=== PATIENT | male | born 1965 | race Caucasian/White ===

== ENCOUNTER 2017-07-03 18:08 | Emergency (ER) | payer OTHER ==
[~2017-07-03] VITALS: Ht 167.6 cm; Wt 97.1 kg
[2017-07-03 18:51] LABS: ABSOLUTE BASOPHIL COUNT 0.1 /CUMM (0.0-0.2); ABSOLUTE EOSINOPHIL COUNT 0.2 /CUMM (0.0-0.7); ABSOLUTE GRANULOCYTE CT 4.9 /CUMM (1.4-6.5); ABSOLUTE LYMPH COUNT 2.8 /CUMM (1.2-3.4); ABSOLUTE MONOCYTE COUNT 0.7 /CUMM (0.10-0.60); BASOPHIL % 0.8 % (0.0-2.0); EOSINOPHIL % 2.3 % (0-5); GRANULOCYTE % 56.6 % (42.2-75.2); HEMATOCRIT 46.1 % (42-52); MEAN CORPUSCULAR HGB 27.9 PG (27.0-31.0); MEAN CORPUSCULAR VOLUME 84.6 FL (80.0-94.0); MEAN PLATELET VOLUME 8.6 FL (7.4-10.4); PLATELET COUNT 224 /CUMM (130-400); RBC DISTRIBUTION WIDTH 13.2 % (11.5-14.5); RED BLOOD CELL CT 5.45 /CUMM (4.70-6.10); WHITE BLOOD CELL COUNT 8.6 /CUMM (4.8-10.8)
--- NOTE | 2017-07-03 20:17 | ED CARDIAC/CP/PALPITATIONS ---
History of Present Illness General Chief Complaint: Chest Pain Stated Complaint: CP Source: patient, family Exam Limitations: no limitations Vital Signs & Intake/Output Vital Signs & Intake/Output Vital Signs Date Time Temp Pulse Resp B/P B/P Pulse O2 O2 Flow FiO2 Mean Ox Delivery Rate 07/03 2247 71 20 145/78 98 07/03 1832 97.2 78 16 168/83 97 Room Air ED Intake and Output 07/04 0000 07/03 1200 Intake Total Output Total Balance Patient 214 lb Weight Allergies Coded Allergies: MDX - No Known Drug Allergies - Nkd (NO KNOWN DRUG ALLERGIES - NKDA) (06/25/12) Reconcile Medications No Known Home Medications Triage Note: PT TO TRIAGE STATES THAT FOR THE PAST 3 WEEKS HE HAS BEEN HAVING INTERMITTANT NON RADIATING L SIDE CP, STATES THAT HE HAS BEEN FEELING VERY TIRED, DENIES SOB. Triage Nurses Notes Reviewed? yes Onset: Abrupt Duration: minute(s): Timing: last episode 30 minutes prior to arrival Quality/Severity: mild Location: left parasternal Radiation: no radiation Activities at Onset: none Modifying Factors: Improves With: rest. Associated Symptoms: worse with palpation HPI: 51 yo gentleman h/o intracranial hemorrhage a few years ago, otherwise healthy, with several weeks of intermittent sharp chest pain. "Like a needle goes right through my heart." He notes the pain lasts a few seconds, is self resolved, without radiation, dyspnea, syncopal symptoms. Past History Travel History Traveled to [place] past 21 day No Medical History Any Pertinent Medical History? see below for history Neurological: NONE EENT: NONE Cardiovascular: NONE Respiratory: NONE Gastrointestinal: NONE Hepatic: NONE Renal: NONE Musculoskeletal: NONE Psychiatric: NONE Endocrine: NONE Blood Disorders: NONE Cancer(s): NONE SHOTBLASTER/Reproductive: NONE Surgical History Surgical History: non-contributory Psychosocial History What is your primary language Tunisian Tobacco Use: Never used ETOH Use: denies use Illicit Drug Use: denies illicit drug use Family History Hx Contributory? No Review of Systems Review of Systems Constitutional: Reports: no symptoms. EENTM: Reports: no symptoms. Respiratory: Reports: no symptoms. Cardiovascular: Reports: no symptoms. GI: Reports: no symptoms. Genitourinary: Reports: no symptoms. Musculoskeletal: Reports: no symptoms. Skin: Reports: no symptoms. Neurological/Psychological: Reports: no symptoms. Hematologic/Endocrine: Reports: no symptoms. Immunologic/Allergic: Reports: no symptoms. All Other Systems: Reviewed and Negative Physical Exam Physical Exam General Appearance: well developed/nourished, no apparent distress Head: atraumatic, normal appearance Eyes: Bilateral: normal appearance. Ears, Nose, Throat: normal pharynx, normal ENT inspection Neck: normal inspection, supple, full range of motion Respiratory: normal breath sounds, no respiratory distress, left parasternal chest wall tenderness Cardiovascular: regular rate/rhythm Gastrointestinal: normal bowel sounds, soft, non-tender Back: normal inspection Extremities: normal inspection, normal capillary refill, normal range of motion, no edema Neurologic/Psych: no motor/sensory deficits, awake, alert, oriented x 3 Core Measures ACS in differential dx? No CVA/TIA Diagnosis No Sepsis Present: No Sepsis Focused Exam Completed? No Progress Differential Diagnosis: AMI, costochondritis, musculoskeletal pain, unstable angina Plan of Care: Orders Procedure Date/time Status TROPONIN LEVEL 07/04 2139 Complete EKG 07/04 2139 Active Add-on Test (ER Only) 07/03 2017 Active D-DIMER 07/03 184 Complete TROPONIN LEVEL 07/03 183 Complete COMPREHENSIVE METABOLIC PANEL 07/03 183 Complete CBC WITHOUT DIFFERENTIAL 07/03 1829 Complete EKG 07/03 1809 Active Laboratory Tests 07/03/17 2148: Troponin I < 0.01 07/03/17 1840: Anion Gap 15, Estimated GFR > 60, BUN/Creatinine Ratio 23.8, Glucose 173 H, Calcium 9.2, Total Bilirubin 0.6, AST 31, ALT 59, Alkaline Phosphatase 103, Troponin I < 0.01, Total Protein 7.3, Albumin 4.1, Globulin 3.2, Albumin/ Globulin Ratio 1.3, D-Dimer High Sensitivty < 200, CBC w Diff NO MAN DIFF REQ, RBC 5.45, MCV 84.6, MCH 27.9, MCHC 33.0, RDW 13.2, MPV 8.6, Gran % 56.6, Lymphocytes % 32.4, Monocytes % 7.9, Eosinophils % 2.3, Basophils % 0.8, Absolute Granulocytes 4.9, Absolute Lymphocytes 2.8, Absolute Monocytes 0.7 H, Absolute Eosinophils 0.2, Absolute Basophils 0.1 Diagnostic Imaging: Viewed by Me: Radiology Read. Discussed w/RAD: Radiology Read. CXR Impression: PATIENT: ROYB HUTCHINSON PRESENT AGE: 51 PATIENT ACCOUNT NO: [id number] : 66 LOCATION: [facility] ORDERING PHYSICIAN: Carlos GÓMEZ SERVICE DATE: 07/03/17 EXAM TYPE: RAD - XRY-CHEST XRAY, TWO VIEWS EXAMINATION: XR CHEST CLINICAL INFORMATION: Chest pain. COMPARISON: None TECHNIQUE: 2 views of the chest were obtained. FINDINGS: The lungs are well expanded. There is no focal consolidation, edema, or effusion. No pneumothorax. The cardiomediastinal silhouette is within normal limits. No acute osseous abnormality. IMPRESSION: No acute pulmonary findings. DICTATED BY: Misbah Edge MD DATE/TIME DICTATED:07/03/172053 [employer] AGENT:SERG DATE/ TIME TRANSCRIBED:07/03/172053 CONFIDENTIAL, DO NOT COPY WITHOUT APPROPRIATE AUTHORIZATION. <Electronically signed in Other Vendor System> SIGNED BY: Minesh HENSLEY,Misbah 07/03/172057 Initial ED EKG: nsr, non specific st changes. Repeat EKG: unchanged Departure Departure Disposition: HOME OR SELF CARE Condition: Stable Clinical Impression Primary Impression: Chest pain Referrals: Gamaliel HENSLEY,Rashad Calderon (PCP/Family) Departure Forms: Customer Survey General Discharge Information Prescriptions: Current Visit Scripts No Known Home Medications Comments 07/03/17, 22:39.... pt feels well... reproducible chest wall pain... trop/ekg benign x 2, dimer neg... pt is chest pain free in ED.... safe for discharge with close follow up ... pt referred to cards. Critical Care Note Critical Care Note Critical Care Time: non-applicable
--- NOTE | 2017-07-03 20:58 | RADIOLOGY REPORT ---
EXAMINATION: XR CHEST CLINICAL INFORMATION: Chest pain. COMPARISON: None TECHNIQUE: 2 views of the chest were obtained. FINDINGS: The lungs are well expanded. There is no focal consolidation, edema, or effusion. No pneumothorax. The cardiomediastinal silhouette is within normal limits. No acute osseous abnormality. IMPRESSION: No acute pulmonary findings.
[2017-07-03 22:47] VITALS: BP 145/78
== END 2017-07-03 22:48 ==
LOC: ERH 18:08
PROVIDERS: Emergency Medicine
DX: R07.89 Other chest pain (principal)
CPT/HCPCS: 71046; 93005; 93010